=== PATIENT | female | born 1965 | race African-American/Black ===

== ENCOUNTER 2021-05-13 11:47 | Emergency (ER) | payer MEDICAID ==
[~2021-05-13] VITALS: Ht 160 cm; Wt 73.0 kg
[~2021-05-13 11:47] MED LIST: BENA40TA8; CETI10TA93; HYDR25TA4; LAMO100T44; NORTRIPTYLINE HCL 50 MG CAP; OMEPRAZOLE DR 40 MG CAPSULE; QUET200T30; SERT-160; VERA240T67; ZOLP10TA6
[2021-05-13] MEDS ORDERED: cloNIDine HCL 0.1 MG TAB PO ONE (12:30)
[2021-05-13 15:27] VITALS: BP 159/89
== END 2021-05-13 15:49 | disposition home or self-care (01) ==
LOC: ER 11:47
DX: T18.9XXA Foreign body of alimentary tract, part unspecified, initial encounter (principal); I16.0 Hypertensive urgency; I10 Essential (primary) hypertension; E78.5 Hyperlipidemia, unspecified; Z90.49 Acquired absence of other specified parts of digestive tract; Z90.710 Acquired absence of both cervix and uterus; F12.10 Cannabis abuse, uncomplicated; X58.XXXA Exposure to other specified factors, initial encounter; Y93.89 Activity, other specified; Y92.89 Other specified places as the place of occurrence of the external cause; Y99.8 Other external cause status
CPT/HCPCS: 71046; 93005

== ENCOUNTER 2022-11-12 10:06 | Emergency (ER) | payer MEDICAID ==
[~2022-11-12] VITALS: Ht 160 cm; Wt 66.0 kg
[~2022-11-12 10:06] MED LIST changes: +BENA40TA70; -BENA40TA8
[2022-11-12] MEDS ORDERED: MAALOX PLUS or MAALOX 30 ML PO ONE (10:30)
[2022-11-12] MEDS ORDERED: DONNATAL 5ml ORAL Elix (BELLADONNA ALK-PHENOBARB) PO ONE (10:30)
[2022-11-12] MEDS ORDERED: LIDOCAINE VISCOUS 2% 15ML UD PO ONE (10:30)
[2022-11-12 10:39] LABS: Basophils # (auto) 0 10 ^3/uL (0-0.2); Basophils % (auto) 0.7 % (0.0-2.0); Eosinophils # (auto) 0.2 10 ^3/uL (0-0.8); Eosinophils % (auto) 2.7 % (0.0-7.0); Hematocrit 37.4 % (36.0-46.0); Hemoglobin 12.2 g/dL (12.2-16.2); Lymphocytes # (auto) 2.2 10 ^3/uL (0.4-5.4); Lymphocytes % (auto) 32.3 % (10.0-50.0); Mean Corpuscular Hemoglobin 27.3 pg (28.0-32.0); Mean Corpuscular Hgb Conc. 32.7 g/dL (32.0-36.0); Mean Corpuscular Volume 83.5 fL (80.0-100.0); Monocytes # (auto) 0.4 10 ^3/uL (0-1.3); Monocytes % (auto) 5.8 % (0.0-12.0); Neutrophils # (auto) 3.9 10 ^3/uL (1.6-8.6); Neutrophils % (auto) 58.5 % (37.0-80.0); Red Blood Cells 4.48 10^6/uL (4.0-5.20); Red Cell Distribution Width 13.3 % (11.8-14.3); White Blood Cell 6.7 10^3/uL (4.4-10.8)
[2022-11-12 10:49] LABS: Urine Bacteria FEW /hpf (None Seen); Urine Blood 1+ /uL (Negative); Urine Specific Gravity 1.021 (1.001-1.035); Urine WBC 1 /hpf (0 - 5)
[2022-11-12 10:57] LABS: Albumin 3.8 g/dL (3.4-5.0); Calcium 8.6 mg/dL (8.5-10.1); Potassium 3.6 mmol/L (3.5-5.1)
[2022-11-12 11:00] LABS: BUN/Creatinine Ratio 20.4 (10.0-20.0); Bilirubin, Total 0.1 mg/dL (0.2-1.0); Total Protein 7.4 g/dL (6.4-8.2)
[2022-11-12] MEDS ORDERED: DICY10CA PO (11:15)
[2022-11-12] MEDS ORDERED: KETOROLAC TROMETH 60MG/2ML VIAL IM ONE (13:45)
[2022-11-12 14:04] VITALS: BP 162/112
== END 2022-11-12 14:16 | disposition home or self-care (01) ==
LOC: ER 10:06
DX: K29.70 Gastritis, unspecified, without bleeding (principal); M79.18 Myalgia, other site; E78.5 Hyperlipidemia, unspecified; I10 Essential (primary) hypertension; F12.10 Cannabis abuse, uncomplicated; Z90.49 Acquired absence of other specified parts of digestive tract; Z90.710 Acquired absence of both cervix and uterus
CPT/HCPCS: 36415; 80053; 81001; 83690; 85025; 93005; 96372; 99284; J1885

== ENCOUNTER 2025-03-17 12:17 | Emergency (ER) | payer MEDICAID ==
[~2025-03-17] VITALS: Ht 160 cm; Wt 80.0 kg
[~2025-03-17 12:17] MED LIST changes: -BENA40TA70; +BENA40TA71; +DICY10CA PO
--- NOTE | 2025-03-17 13:55 | ED.PDOC ---
HPI Comments 59 y/o F, presents to the ED for CC of s/p dog bite. Patient reports, she was her dogs when her dog accidently bite her right forearm. Patient has a notable 2cm laceration to her right forearm; bleeding is controlled at this time. No other symptoms or modifying factors are present at this time. Chief Complaint: Laceration Time Seen by MD: 13:50 Primary Care Provider: UNKNOWN Reviewed Notes: Nurses Notes, Medications, Allergies Allergies: Coded Allergies: Iron (Verified Allergy, Unknown, 05/13/21) Home Meds Active Scripts Ibuprofen Micronized (MOTRIN TABLET) 600 Mg Tb, 600 MG PO TID PRN for 5 Days, #15 TAB *Black box warning-NSAIDS can increase risk of ND & hypertension, GI irritation, ulceration, bleed, perferation. Do not use post cardiac surgery. Use short duration/lowest effective dose. Prov:JULIANA FLANNERY MD 03/17/25 Amoxicillin & Pot Clavulanate (Augmentin) 500 Mg Tab, 1 TAB PO BID for 10 Days, #20 TAB Prov:JULIANA FLANNERY MD 03/17/25 Dicyclomine Hcl (BENTYL CAPSULE) 10 Mg Cp, 1 CAP PO Q6HPRN, #30 CAP 3 Refills Prov:HETAL BOO DO 11/12/22 Reported Medications [Zolpidem Xtnfzo54 Mg] (Zolpidem Tartrate) 10 MG TAB No Conflict Check, MG 01/20/13 [Nortriptyline Hcl 50 Mg Cap] No Conflict Check 01/20/13 [Cetirizine Hcl10 Mg] (Cetirizine Hcl) 10 MG TAB No Conflict Check, MG 01/20/13 [Zxxpdxmgjrafyee54 Mg] (Hydrochlorothiazide) 25 MG TAB No Conflict Check, MG 01/20/13 [Nzvcpivymzf554 Mg] (Lamotrigine) 100 MG TAB No Conflict Check, MG 01/20/13 [Hscyamhh963 Mg] (Seroquel) 200 MG TAB No Conflict Check, MG 01/20/13 [Sertraline Nuh317 Mg] (Sertraline Hcl) 100 MG TAB No Conflict Check, MG 01/20/13 [Omeprazole Dr 40 Mg Capsule] No Conflict Check 01/20/13 [Benazepril Hcl40 Mg] (Benazepril Hcl) 40 MG TAB No Conflict Check, MG 01/20/13 [Verapamil Wna742 M1] (Verapamil Hcl Er) 240 MG TAB No Conflict Check, MG 01/20/13 Information Source: Patient Mode of Arrival: Ambulatory Severity: Moderate Severity of Laceration: Controlled Bleeding Complexity: Simple Timing: Minutes Prehospital treatment: None Laceration Location: Arm (right forearm) Mechanism: Dog Laceration Length (cm): 2 Skin Type: Jagged Depth of Injury: Skin Discharge: Bloody Erythema: Localized to Wound Edges Associated Signs and Symptoms: None Past Medical History PAST MEDICAL HISTORY: Anxiety, Depression, High Lipids, HTN Surgical History: Cholecystectomy, Hysterectomy 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 Family History Family History: No family hx of HTN Social History Smoker: Non-Smoker Alcohol: Occasionally Drugs: Marijuana Lives In: Home Constitutional: denies: chills, diaphoresis, fatigue, fever, malaise, sweats, weakness, others EENTM: denies: blurred vision, double vision, ear bleeding, ear discharge, ear drainage, ear pain, ear ringing, eye pain, eye redness, hearing loss, mouth pain, mouth swelling, nasal discharge, nose bleeding, nose congestion, nose pain, photophobia, tearing, throat pain, throat swelling, voice changes, others Respiratory: denies: cough, hemoptysis, orthopnea, SOB at rest, shortness of breath, SOB with excertion, stridor, wheezing, others Cardiovascular: denies: chest pain, dizzy spells, diaphoresis, Dyspnea on exertion, edema, irregular heart beat, left arm pain, lightheadedness, palpitations, PND, syncope, others Gastrointestinal: denies: abdomen distended, abdominal pain, blood streaked bowels, constipated, diarrhea, dysphagia, difficulty swallowing, hematemesis, melena, nausea, poor appetite, poor fluid intake, rectal bleeding, rectal pain, vomiting, others Genitourinary: denies: abnormal vagina bleeding, burning, dyspareunia, dysuria, flank pain, frequency, hematuria, incontinence, pain, , vagina discharge, urgency, others Neurological: denies: dizziness, fainting, headache, left sided numbness, left sided weakness, numbness, paresthesia, pre-existing deficit, right sided numbness, right sided weakness, seizure, speech problems, tingling, tremors, weakness, others Musculoskeletal: denies: back pain, gout, joint pain, joint swelling, muscle pain, muscle stiffness, neck pain, others Integumetry: denies: bruises, change in color, change in hair/nails, dryness, laceration, lesions, lumps, rash, wounds, others Allergic/Immunocompromised: denies: Difficulty Healing, Frequent Infections, Hives, Itching, others Hematologic/Lymphatic: denies: anemia, blood clots, easy bleeding, easy bruising, swollen glands, others Endocrine: denies: excessive hunger, excessive sweating, excessive thirst, excessive urination, flushing, intolerance to cold, intolerance to heat, unexplained weight gain, unexplained weight loss, others Psychiatric: denies: anxiety, bipolar disorder, depression, hopeless, panic disorder, schizophrenia, sleepless, suicidal, others All Other Systems: Reviewed and Negative Physical Exam General Appearance: Moderate Distress HEENT: Normal ENT Inspection, Pharynx Normal, TMs Normal Neck: Full Range of Motion, Non-Tender, Normal, Normal Inspection Respiratory: Chest Non-Tender, Lungs Clear, No Accessory Muscle Use, No Respiratory Distress, Normal Breath Sounds Cardiovascular: No Edema, No JVD, No Murmur, No Gallop, Normal Peripheral Pulses, Regular Rate/Rhythm Breast Exam: Deferred Gastrointestinal: No Organomegaly, Non Tender, No Pulsatile Mass, Normal Bowel Sounds, Soft Genitalia: Deferred Pelvic: Deferred Rectal: Deferred Extremities: No calf tenderness, Normal capillary refill, Normal inspection, Normal range of motion, Non-tender, No pedal edema Musculoskeletal : Apperance: Normal Neurologic: Alert, supervisor title II-XII nml as Tested, No Motor Deficits, Normal Affect, Normal Mood, No Sensory Deficits Cerebellar Function: Normal Reflexes: Normal Skin: Lacerations (Right forearm 3 cm) Peripheral Pulses: 3+ Radial (R), 3+ Radial (L) Lymphatic: No Adenopathy Was a procedure done? Was a procedure done?: Yes Sedation Sedation?: No Laceration Repair : Location right forearm Length 2cm Anesthetic: Lidocaine Laceration Repair Prep: Saline, Betadine Laceration Repair Wound Comple: epidermis/dermis repair Laceration Repair: [place] Informed consent obtained: Yes Risks, benefits, and alternati: Yes Differential diagnosis Generic Laceration: Laceration X-Ray, Labs, Meds, VS Vital Signs Date Time Temp Pulse Resp B/P (MAP) Pulse Ox O2 Delivery O2 Flow Rate FiO2 03/17/25 15:06 97.6 83 15 137/95 (109) 96 97.6 03/17/25 15:06 83 18 96 Room Air 03/17/25 12:21 97.6 83 15 137/95 96 97.6 Current Medications Medications (Trade) Dose Ordered Sig/Sina Route Start Time Stop Time Status Last Admin Diphtheria/ Tetanus/Acell Pertussis (Boostrix T-Dap) 0.5 ml ONCE ONCE IM 03/17/25 14:30 03/17/25 14:31 DC 03/17/25 14:40 Acetaminophen/ Hydrocodone Bitart (Sidney 10/325MG Tab) 1 tab ONCE ONCE PO 03/17/25 14:30 03/17/25 14:31 DC 03/17/25 14:35 Patient alert. Has a wound from dog bite. Is her personal dog. Vitals stable. Immunized. Was given tetanus. Cleaned the wound. Placed edison. Was given prescription Augmentin antibiotic. Explained to the patient. Was told to follow up with her primary care physician. Was told to come back if there is any problem. Time of 1ST Reevaluation: 14:20 Reevaluation 1ST: Unchanged Patient Education/Counseling: Diagnosis, Treatment Family Education/Counseling: No Family Present Departure 1 Departure Time of Disposition: 14:08 Impression: Primary Impression: Dog bite Qualified Codes: W54.0XXA - Bitten by dog, initial encounter Additional Impression: Laceration Disposition: 01 HOME / SELF CARE / HOMELESS Condition: Good e-Prescriptions Ibuprofen Micronized (MOTRIN TABLET) 600 Mg Tb 600 MG PO TID PRN for 5 Days, #15 TAB *Black box warning-NSAIDS can increase risk of ND & hypertension, GI irritation, ulceration, bleed, perferation. Do not use post cardiac surgery. Use short duration/lowest effective dose. Prov: JULIANA FLANNERY MD 03/17/25 Amoxicillin & Pot Clavulanate (Augmentin) 500 Mg Tab 1 TAB PO BID for 10 Days, #20 TAB Prov: JULIANA FLANNERY MD 03/17/25 Discharged With: Self Critical Care Note Critical Care Time?: No Stability Stability form required: No Heart Score Heart Score: Heart Score Response (Comments) Value History N/A 0 EKG N/A 0 Age N/A 0 Risk Factors N/A 0 Troponin N/A 0 Total 0 I personally scribed for JULIANA FLANNERY MD ([email or web address]) on 03/17/25 at 13:55. Electronically submitted by Bety Padilla ([email or web address]). JULIANA FLANNERY MD Mar 17, 2025 13:55
[2025-03-17] MEDS ORDERED: AMOX500T86 PO (14:09)
[2025-03-17] MEDS ORDERED: IBU600T PO (14:26)
[2025-03-17] MEDS: HYDROcodone-ACET 10/325MG TAB PO ONE (14:35)
[2025-03-17] MEDS: TETANUS-DIPTH-ACEL PERTUSSIS 0.5ML SYR Tdap IM ONE (14:40)
[2025-03-17 15:06] VITALS: BP 137/95; PULSE 83; RESP 18; TEMP 97.6; O2SAT 96
== END 2025-03-17 15:11 | disposition home or self-care (01) ==
LOC: ER 12:17
DX: S51.812A Laceration without foreign body of left forearm, initial encounter (principal); F41.9 Anxiety disorder, unspecified; F32.A Depression, unspecified; I10 Essential (primary) hypertension; Z90.49 Acquired absence of other specified parts of digestive tract; Z90.710 Acquired absence of both cervix and uterus; W54.0XXA Bitten by dog, initial encounter; Y93.89 Activity, other specified; Y92.89 Other specified places as the place of occurrence of the external cause; Y99.8 Other external cause status
CPT/HCPCS: 12001; 90471; 90715; 99283; A4649

== ENCOUNTER 2025-03-19 10:51 | Emergency (ER) | payer MEDICAID ==
[~2025-03-19] VITALS: Ht 160 cm; Wt 82.2 kg
[~2025-03-19 10:51] MED LIST changes: +AMOX500T86 PO; +IBU600T PO
--- NOTE | 2025-03-19 11:30 | ED.PDOC ---
History of Present Illness(SKN HPI Comments 59-year-old female presents to the ER for a chief complaint of a wound check. The patient has the wound to the right forearm with a no visible drainage, no surrounding erythema, wound is healing appropriately, crusting over. Denies any other symptoms at this time. Chief Complaint: Wound Check Time Seen by MD: 11:00 Primary Care Provider: UNKNOWN History of Present Illness: Nurses Notes, Medications, Allergies Allergies: Coded Allergies: Iron (Verified Allergy, Unknown, 05/13/21) Home Meds Active Scripts Ibuprofen Micronized (MOTRIN TABLET) 600 Mg Tb, 600 MG PO TID PRN for 5 Days, #15 TAB *Black box warning-NSAIDS can increase risk of HI & hypertension, GI irritation, ulceration, bleed, perferation. Do not use post cardiac surgery. Use short duration/lowest effective dose. Prov:JULIANA FLANNERY MD 03/17/25 Amoxicillin & Pot Clavulanate (Augmentin) 500 Mg Tab, 1 TAB PO BID for 10 Days, #20 TAB Prov:JULIANA FLANNERY MD 03/17/25 Dicyclomine Hcl (BENTYL CAPSULE) 10 Mg Cp, 1 CAP PO Q6HPRN, #30 CAP 3 Refills Prov:HETAL BOO DO 11/12/22 Reported Medications [Zolpidem Ayjxov26 Mg] (Zolpidem Tartrate) 10 MG TAB No Conflict Check, MG 01/20/13 [Nortriptyline Hcl 50 Mg Cap] No Conflict Check 01/20/13 [Cetirizine Hcl10 Mg] (Cetirizine Hcl) 10 MG TAB No Conflict Check, MG 01/20/13 [Htgevbyvislhvmi87 Mg] (Hydrochlorothiazide) 25 MG TAB No Conflict Check, MG 01/20/13 [Dhkakhsroqf395 Mg] (Lamotrigine) 100 MG TAB No Conflict Check, MG 01/20/13 [Mahhtvie815 Mg] (Seroquel) 200 MG TAB No Conflict Check, MG 01/20/13 [Sertraline Ytj909 Mg] (Sertraline Hcl) 100 MG TAB No Conflict Check, MG 01/20/13 [Omeprazole Dr 40 Mg Capsule] No Conflict Check 01/20/13 [Benazepril Hcl40 Mg] (Benazepril Hcl) 40 MG TAB No Conflict Check, MG 01/20/13 [Verapamil Soa342 M1] (Verapamil Hcl Er) 240 MG TAB No Conflict Check, MG 01/20/13 Information Source: Patient Mode of Arrival: Ambulatory Severity: Moderate Timing: Days Duration: Since onset, Days Prehospital treatment: None Location: Other (Forearm) Mechanism: Preceding Wound Object: None Condition of Object: None Wound Type: Laceration History of: None Associated Signs and Symptoms: None Past Medical History PAST MEDICAL HISTORY: Anxiety, Depression, High Lipids, HTN Surgical History: Cholecystectomy, Hysterectomy 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 Family History Family History: No family hx of HTN Social History Smoker: Non-Smoker Alcohol: Occasionally Drugs: Marijuana Lives In: Home Constitutional: denies: chills, diaphoresis, fatigue, fever, malaise, sweats, weakness, others EENTM: denies: blurred vision, double vision, ear bleeding, ear discharge, ear drainage, ear pain, ear ringing, eye pain, eye redness, hearing loss, mouth pain, mouth swelling, nasal discharge, nose bleeding, nose congestion, nose pain, photophobia, tearing, throat pain, throat swelling, voice changes, others Respiratory: denies: cough, hemoptysis, orthopnea, SOB at rest, shortness of breath, SOB with excertion, stridor, wheezing, others Cardiovascular: denies: chest pain, dizzy spells, diaphoresis, Dyspnea on exertion, edema, irregular heart beat, left arm pain, lightheadedness, palpitations, PND, syncope, others Gastrointestinal: denies: abdomen distended, abdominal pain, blood streaked bowels, constipated, diarrhea, dysphagia, difficulty swallowing, hematemesis, melena, nausea, poor appetite, poor fluid intake, rectal bleeding, rectal pain, vomiting, others Genitourinary: denies: abnormal vagina bleeding, burning, dyspareunia, dysuria, flank pain, frequency, hematuria, incontinence, pain, , vagina discharge, urgency, others Neurological: denies: dizziness, fainting, headache, left sided numbness, left sided weakness, numbness, paresthesia, pre-existing deficit, right sided numbness, right sided weakness, seizure, speech problems, tingling, tremors, weakness, others Musculoskeletal: denies: back pain, gout, joint pain, joint swelling, muscle pain, muscle stiffness, neck pain, others Integumetry: reports: wounds (Wound check to the right forearm); denies: bruises, change in color, change in hair/nails, dryness, laceration, lesions, lumps, rash, others Allergic/Immunocompromised: denies: Difficulty Healing, Frequent Infections, Hives, Itching, others Hematologic/Lymphatic: denies: anemia, blood clots, easy bleeding, easy bruising, swollen glands, others Endocrine: denies: excessive hunger, excessive sweating, excessive thirst, excessive urination, flushing, intolerance to cold, intolerance to heat, unexplained weight gain, unexplained weight loss, others Psychiatric: denies: anxiety, bipolar disorder, depression, hopeless, panic disorder, schizophrenia, sleepless, suicidal, others All Other Systems: Reviewed and Negative Physical Exam Exam Comments no visible drainage, no surrounding erythema, wound is healing appropriately, crusting over. General Appearance: No Apparent Distress, Normal HEENT: Normal ENT Inspection, Pharynx Normal, TMs Normal Neck: Full Range of Motion, Non-Tender, Normal, Normal Inspection Respiratory: Chest Non-Tender, Lungs Clear, No Accessory Muscle Use, No Respiratory Distress, Normal Breath Sounds Cardiovascular: No Edema, No JVD, No Murmur, No Gallop, Normal Peripheral Pulses, Regular Rate/Rhythm Breast Exam: Deferred Gastrointestinal: No Organomegaly, Non Tender, No Pulsatile Mass, Normal Bowel Sounds, Soft Genitalia: Deferred Pelvic: Deferred Rectal: Deferred Extremities: No calf tenderness, Normal capillary refill, Normal inspection, Normal range of motion, Non-tender, No pedal edema Musculoskeletal : Apperance: Normal Neurologic: Alert, mental health technician II-XII nml as Tested, No Motor Deficits, Normal Affect, Normal Mood, No Sensory Deficits Cerebellar Function: Normal Reflexes: Normal Skin: Dry, Normal Color, Warm Lymphatic: No Adenopathy Was a procedure done? Was a procedure done?: No X-Ray, Labs, Meds, VS Vital Signs Date Time Temp Pulse Resp B/P (MAP) Pulse Ox O2 Delivery O2 Flow Rate FiO2 03/19/25 11:50 99 17 100 Room Air 03/19/25 11:50 98.2 99 17 142/98 (113) 100 98.2 03/19/25 10:52 98.0 102 16 157/97 100 98.0 X-Ray, Labs, Meds, VS Comment On reevaluation, patient had symptomatic improvement. Patient is stable for discharge at this time. External notes reviewed. Test results and diagnostic imaging interpreted. All diagnostic findings, discharge care, education and instructions provided Follow-up with PCP in 2 to 3 days Patient verbalized understanding and agreed to treatment plan Vital signs stable, afebrile, no acute distress noted Patient ambulatory with strong steady gait Advised to return precautions for any new or worsening symptoms, return to ER immediately for re-evaluation Patient is aware that the purpose of this visit was for an acute medical emergency requiring emergent stabilization. Chronic conditions, including malignancies have not been ruled out. Patient is instructed to follow up with PCP as directed and discharge instructions for continued care and workup. If unable to arrange follow-up, patient is to return to the emergency department for reassessment. Patient (parent or legal guardian if applicable) was given verbal and written discharge instructions and acknowledges understanding. Time of 1ST Reevaluation: 11:30 Reevaluation 1ST: Unchanged Patient Education/Counseling: Diagnosis, Treatment, Prognosis Family Education/Counseling: No Family Present SEPSIS Sepsis Screen Date sepsis recognized/suspect: Mar 19, 2025 Time Sepsis recognized/suspect: 1054 Recent Procedure: No On Antibiotic Therapy: No Respiratory Rate >20: No Heart Rate >90: No Temp<36 C (96.8 F) or >38.3 C: No SBP <90 or MAP <65 mmHG: No New Acute Mental Status Change: No Is the patient on CPAP, BIPAP,: No Vital Signs Date Time Temp Pulse Resp B/P (MAP) Pulse Ox O2 Delivery O2 Flow Rate FiO2 03/19/25 11:50 99 17 100 Room Air 03/19/25 11:50 98.2 99 17 142/98 (113) 100 98.2 03/19/25 10:52 98.0 102 16 157/97 100 98.0 Departure 1 Departure Time of Disposition: 11:30 Impression: Primary Impression: Visit for wound check Disposition: HOME / SELF CARE / HOMELESS Condition: Stable Critical Care Note Critical Care Time?: No Stability Stability form required: No I personally scribed for CAMPOS CANO NP ([email or web address]) on 03/19/25 at 11:42. Electronically submitted by Zeke Allison ([email or web address]). I personally scribed for CAMPOS CANO NP ([email or web address]) on 03/19/25 at 11:43. Electronically submitted by Zeke Allison ([email or web address]). CAMPOS CANO NP Mar 19, 2025 11:30
[2025-03-19] MEDS: NEOMYCIN-BACITRACIN-POLYM UNITDOSE PKG TOP OINT TOP ONE (11:42)
[2025-03-19 11:50] VITALS: BP 142/98; PULSE 99; RESP 17; TEMP 98.2; O2SAT 100
== END 2025-03-19 11:52 | disposition home or self-care (01) ==
LOC: ER 10:51
DX: S50.911D Unspecified superficial injury of right forearm, subsequent encounter (principal); Z48.00 Encounter for change or removal of nonsurgical wound dressing; I10 Essential (primary) hypertension; F32.A Depression, unspecified; F41.9 Anxiety disorder, unspecified; E78.5 Hyperlipidemia, unspecified; Z90.49 Acquired absence of other specified parts of digestive tract; Z90.710 Acquired absence of both cervix and uterus; Z98.890 Other specified postprocedural states; X58.XXXD Exposure to other specified factors, subsequent encounter

== ENCOUNTER 2025-03-25 08:20 | Emergency (ER) | payer MEDICAID ==
[~2025-03-25] VITALS: Ht 160 cm; Wt 85.3 kg
[2025-03-25 08:21] VITALS: BP 151/90; PULSE 107; RESP 16; TEMP 98.3; O2SAT 96
--- NOTE | 2025-03-25 09:06 | ED.PDOC ---
History of Present Illness(SKN HPI Comments 59-year-old female presents to the ER with a chief complaint I have a wound check to the right forearm. Patient reports that she had amy placed on her right forearm six days ago and was told to come back to the ER to get them removed. Patient notes on having seven amy when placed. Denies any other symptoms at this time. Chief Complaint: Wound Check Time Seen by MD: 08:25 Primary Care Provider: UNKNOWN History of Present Illness: Nurses Notes, Medications, Allergies Allergies: Coded Allergies: Iron (Verified Allergy, Unknown, 05/13/21) Home Meds Active Scripts Ibuprofen Micronized (MOTRIN TABLET) 600 Mg Tb, 600 MG PO TID PRN for 5 Days, #15 TAB *Black box warning-NSAIDS can increase risk of TX & hypertension, GI irritation, ulceration, bleed, perferation. Do not use post cardiac surgery. Use short duration/lowest effective dose. Prov:JULIANA FLANNERY MD 03/17/25 Amoxicillin & Pot Clavulanate (Augmentin) 500 Mg Tab, 1 TAB PO BID for 10 Days, #20 TAB Prov:JULINAA FLANNERY MD 03/17/25 Dicyclomine Hcl (BENTYL CAPSULE) 10 Mg Cp, 1 CAP PO Q6HPRN, #30 CAP 3 Refills Prov:HETAL BOO DO 11/12/22 Reported Medications [Zolpidem Ifgpum59 Mg] (Zolpidem Tartrate) 10 MG TAB No Conflict Check, MG 01/20/13 [Nortriptyline Hcl 50 Mg Cap] No Conflict Check 01/20/13 [Cetirizine Hcl10 Mg] (Cetirizine Hcl) 10 MG TAB No Conflict Check, MG 01/20/13 [Aumsgtgvxlknntu24 Mg] (Hydrochlorothiazide) 25 MG TAB No Conflict Check, MG 01/20/13 [[id number] Mg] (Lamotrigine) 100 MG TAB No Conflict Check, MG 01/20/13 [Cbewhlpq416 Mg] (Seroquel) 200 MG TAB No Conflict Check, MG 01/20/13 [Sertraline Vjj254 Mg] (Sertraline Hcl) 100 MG TAB No Conflict Check, MG 01/20/13 [Omeprazole Dr 40 Mg Capsule] No Conflict Check 01/20/13 [Benazepril Hcl40 Mg] (Benazepril Hcl) 40 MG TAB No Conflict Check, MG 01/20/13 [Verapamil Zhe447 M1] (Verapamil Hcl Er) 240 MG TAB No Conflict Check, MG 01/20/13 Information Source: Patient Mode of Arrival: Ambulatory Severity: Moderate Timing: Days Duration: Since onset, Days Prehospital treatment: None Location: Arm (Right forearm) Mechanism: Preceding Wound Object: None Condition of Object: None Wound Type: Laceration Tetanus: Unknown Associated Signs and Symptoms: Pain Past Medical History PAST MEDICAL HISTORY: Anxiety, Depression, High Lipids, HTN Surgical History: Cholecystectomy, Hysterectomy [employer] WORK[employer] History: Denies all [employer] WORK[employer] Hx Family History Family History: Reviewed,noncontributory to illness, Unknown Social History Smoker: Unknown Alcohol: Unknown Drugs: Unknown Lives In: Home Constitutional: denies: chills, diaphoresis, fatigue, fever, malaise, sweats, weakness, others EENTM: denies: blurred vision, double vision, ear bleeding, ear discharge, ear drainage, ear pain, ear ringing, eye pain, eye redness, hearing loss, mouth pain, mouth swelling, nasal discharge, nose bleeding, nose congestion, nose pain, photophobia, tearing, throat pain, throat swelling, voice changes, others Respiratory: denies: cough, hemoptysis, orthopnea, SOB at rest, shortness of breath, SOB with excertion, stridor, wheezing, others Cardiovascular: denies: chest pain, dizzy spells, diaphoresis, Dyspnea on exertion, edema, irregular heart beat, left arm pain, lightheadedness, palpitations, PND, syncope, others Gastrointestinal: denies: abdomen distended, abdominal pain, blood streaked bowels, constipated, diarrhea, dysphagia, difficulty swallowing, hematemesis, melena, nausea, poor appetite, poor fluid intake, rectal bleeding, rectal pain, vomiting, others Genitourinary: denies: abnormal vagina bleeding, burning, dyspareunia, dysuria, flank pain, frequency, hematuria, incontinence, pain, , vagina discharge, urgency, others Neurological: denies: dizziness, fainting, headache, left sided numbness, left sided weakness, numbness, paresthesia, pre-existing deficit, right sided numbness, right sided weakness, seizure, speech problems, tingling, tremors, weakness, others Musculoskeletal: denies: back pain, gout, joint pain, joint swelling, muscle pain, muscle stiffness, neck pain, others Integumetry: reports: others ([place] removed on the right forearm); denies: bruises, change in color, change in hair/nails, dryness, laceration, lesions, lumps, rash, wounds Allergic/Immunocompromised: denies: Difficulty Healing, Frequent Infections, Hives, Itching, others Hematologic/Lymphatic: denies: anemia, blood clots, easy bleeding, easy bruis ing, swollen glands, others Endocrine: denies: excessive hunger, excessive sweating, excessive thirst, exc essive urination, flushing, intolerance to cold, intolerance to heat, unexplained weight gain, unexplained weight loss, others Psychiatric: denies: anxiety, bipolar disorder, depression, hopeless, panic disorder, schizophrenia, sleepless, suicidal, others All Other Systems: Reviewed and Negative Physical Exam General Appearance: No Apparent Distress, Normal HEENT: Normal ENT Inspection, Pharynx Normal, TMs Normal Neck: Full Range of Motion, Non-Tender, Normal, Normal Inspection Respiratory: Chest Non-Tender, Lungs Clear, No Accessory Muscle Use, No Respiratory Distress, Normal Breath Sounds Cardiovascular: No Edema, No JVD, No Murmur, No Gallop, Normal Peripheral Pulses, Regular Rate/Rhythm Breast Exam: Deferred Gastrointestinal: No Organomegaly, Non Tender, No Pulsatile Mass, Normal Bowel Sounds, Soft Genitalia: Deferred Pelvic: Deferred Rectal: Deferred Extremities: No calf tenderness, Normal capillary refill, Normal inspection, Normal range of motion, Non-tender, No pedal edema Musculoskeletal : Apperance: Normal Neurologic: Alert, criminal justice professor II-XII nml as Tested, No Motor Deficits, Normal Affect, Normal Mood, No Sensory Deficits Cerebellar Function: Normal Reflexes: Normal Skin: Dry, Normal Color, Warm Lymphatic: No Adenopathy Was a procedure done? Was a procedure done?: No Differential Diagnosis (INTG) Differential Diagnosis: Other X-Ray, Labs, Meds, VS Vital Signs Date Time Temp Pulse Resp B/P (MAP) Pulse Ox O2 Delivery O2 Flow Rate FiO2 03/25/25 08:21 98.3 107 16 151/90 96 98.3 X-Ray, Labs, Meds, VS Comment 59-year-old female presents to the ER with a chief complaint I have a wound check to the right forearm. Patient arrives alert and oriented, ABC's intact, afebrile, vital signs stable, saturating well in room air [place] Removal Amy removal procedure: Alcohol swab used to clean area thoroughly. Used sterile staple removal kit to remove 7 amy. Clean, dry, intact. No discharge seen. Education provided to keep area clean and dry. If gets soiled, use soap and water to clean. Watch out for signs and symptoms of infection including fever, chills, yellow or green discharge, increased pain, swelling etc. Additional MDM Review of External, Non-ED records: External records reviewed. Discussion with independent historian (EMS, family) history obtained from the patient/parents (if applicable) at bedside Chronic conditions affecting care: None Social determinants of health affecting care: None Consideration of admission (observation or admission): I considered escalation of care to admission for this patient, however given the reassuring workup, the patient is safe for outpatient management. Discussion with the Radiology: No Tests considered but not performed: Prescription medication considered but not given: 12 lead EKG interpretation: Time of 1ST Reevaluation: 08:55 Reevaluation 1ST: Improved Patient Education/Counseling: Diagnosis, Treatment, Prognosis Family Education/Counseling: No Family Present SEPSIS Sepsis Screen Date sepsis recognized/suspect: Mar 25, 2025 Time Sepsis recognized/suspect: 820 Recent Procedure: No On Antibiotic Therapy: No Respiratory Rate >20: No Heart Rate >90: Yes Temp<36 C (96.8 F) or >38.3 C: No SBP <90 or MAP <65 mmHG: No New Acute Mental Status Change: No Is the patient on CPAP, BIPAP,: No Vital Signs Date Time Temp Pulse Resp B/P (MAP) Pulse Ox O2 Delivery O2 Flow Rate FiO2 03/25/25 08:21 98.3 107 16 151/90 96 98.3 Departure 1 Departure Time of Disposition: 09:06 Impression: Primary Impression: Visit for wound check Disposition: HOME / SELF CARE / HOMELESS Condition: Stable Critical Care Note Critical Care Time?: No Stability Stability form required: No Heart Score Heart Score: Heart Score Response (Comments) Value History N/A 0 EKG N/A 0 Age N/A 0 Risk Factors N/A 0 Troponin N/A 0 Total 0 I personally scribed for CAMPOS CANO NP ([email or web address]) on 03/25/25 at 09:14. Electronically submitted by Zeke Allison ([email or web address]). CAMPOS CANO NP Mar 25, 2025 09:06
== END 2025-03-25 09:16 | disposition home or self-care (01) ==
LOC: ER 08:20
DX: S51.811D Laceration without foreign body of right forearm, subsequent encounter (principal); I10 Essential (primary) hypertension; F17.200 Nicotine dependence, unspecified, uncomplicated; F41.9 Anxiety disorder, unspecified; F32.A Depression, unspecified; Z90.710 Acquired absence of both cervix and uterus; Z90.49 Acquired absence of other specified parts of digestive tract; X58.XXXD Exposure to other specified factors, subsequent encounter